=== PATIENT | female | born 1980 | race Asian ===

== ENCOUNTER 2022-02-20 22:27 | Emergency (ER) | payer OTHER ==
[~2022-02-20] VITALS: Ht 154.9 cm; Wt 59.0 kg
[2022-02-20 22:43] VITALS: BP_SYST 131
--- NOTE | 2022-02-20 22:48 | NUR ---
TPT HERE C/O VAGINA BLEEDING X1 WK AND PAASING CLOTS TONIGHT. PT STATED THAT SHE IS THRU IVF AND MICHELET 10/05/2022. PT STATED SHE IS HAVING MILD ABD CRAMPING. PMH;DENIES PT AAOX4, NOT IN ANY DISTRESS AT THIS TIME. PENDING MD CHILDS
[2022-02-20 23:40] LABS: BILIRUBIN,URINE NEGATIVE (NEGATIVE); BLOOD, URINE 3+ (NEGATIVE); CLARITY/URINE CLEAR (CLEAR); COLOR,URINE YELLOW (YELLOW); GLUCOSE,URINE NEGATIVE (NEGATIVE); KETONES,URINE NEGATIVE (NEGATIVE); LEUKOCYTE ESTERASE ,URINE 1+ (NEGATIVE); NITRITE, URINE NEGATIVE (NEGATIVE); PROTEIN URINE NEGATIVE (NEGATIVE); UROBILINOGEN,URINE 0.2 (0.2-1.0)
[2022-02-20 23:52] LABS: BACTERIA,URINE FEW /HPF (None Seen)
[2022-02-20 23:53] LABS: MUCUS,URINE 1+ /LPF (None Seen)
[2022-02-20 23:58] LABS: BASOPHILS # (AUTO) 0.1 K/uL (0.0-0.2); BASOPHILS % (AUTO) 0.6 % (0.0-2.0); EOSINOPHILS # (AUTO) 0.3 K/uL (0.0-0.4); EOSINOPHILS % (AUTO) 3.1 % (0.0-4.0); HEMATOCRIT 39.3 % (36-48); LYMPHOCYTES # (AUTO) 2.4 K/uL (1.0-5.5); LYMPHOCYTES % (AUTO) 22.7 % (20.5-51.5); MEAN CORPUSCULAR VOLUME 90 fL (79.0-98.0); MONOCYTES # (AUTO) 0.7 K/uL (0.0-1.0); MONOCYTES % (AUTO) 6.3 % (1.7-9.3); NEUTROPHILS # (AUTO) 7.2 K/uL (1.8-7.7); NEUTROPHILS % (AUTO) 67.3 % (40.0-70.0); PLATELET COUNT (AUTO) 414 K/uL (130-430); RED BLOOD CELL COUNT(AUTO) 4.36 MIL/uL (4.2-6.2); RED CELL DISTRIBUTION WIDTH 13.3 % (9.0-15.0); WHITE BLOOD COUNT (AUTO) 10.7 K/uL (4.8-10.8)
[2022-02-21 00:14] LABS: CALCIUM 9.7 mg/dL (8.4-11.0); CREATININE 0.64 mg/dL (0.55-1.30); POTASSIUM 3.7 mmol/L (3.5-5.1)
[2022-02-21 00:43] LABS: ALBUMIN 3.7 g/dL (3.4-4.8); TOTAL BILIRUBIN 0.4 mg/dL (0.0-1.0)
[2022-02-21] MEDS ORDERED: NITR-85 PO (01:14)
[2022-02-21 01:18] VITALS: BP_SYST 131
--- NOTE | 2022-02-21 01:18 | NUR ---
Patient given written and verbal discharge instructions and verbalizes understanding. ER MD discussed with patient the results and treatment provided. Patient in stable condition. ID arm band removed. Rx of given. Patient educated on pain management and to follow up with PMD. Pain Scale 0/10. Opportunity for questions provided and answered.
== END 2022-02-21 01:18 | disposition home or self-care (01) ==
LOC: SED 22:27
DX: O20.0 Threatened abortion (principal); O23.41 Unspecified infection of urinary tract in pregnancy, first trimester; N39.0 Urinary tract infection, site not specified; Z88.0 Allergy status to penicillin; Z3A.01 Less than 8 weeks gestation of pregnancy
CPT/HCPCS: 36415; 76805-TC; 80053; 81000; 84702; 85025; 86901; 99283

== ENCOUNTER 2022-10-12 01:44 | Inpatient (IN) | payer OTHER ==
[~2022-10-12] VITALS: Ht 157.5 cm; Wt 74.8 kg
[~2022-10-12 01:44] MED LIST: NITR-85 PO
[2022-10-12 01:50] VITALS: BP_SYST 147
[2022-10-12 02:28] LABS: BILIRUBIN,URINE NEGATIVE (NEGATIVE); BLOOD, URINE 3+ (NEGATIVE); CLARITY/URINE CLOUDY (CLEAR); GLUCOSE,URINE NEGATIVE (NEGATIVE); KETONES,URINE NEGATIVE (NEGATIVE); LEUKOCYTE ESTERASE ,URINE 2+ (NEGATIVE); NITRITE, URINE NEGATIVE (NEGATIVE); PROTEIN URINE 1+ (NEGATIVE)
[2022-10-12 02:29] LABS: COLOR,URINE YELLOW (YELLOW)
[2022-10-12] MEDS ORDERED: NACL 0.9% 1,000 ML IV ONE ×2 (02:30→03:15)
[2022-10-12 02:48] LABS: BASOPHILS % (AUTO) 0.2 % (0.0-2.0); EOSINOPHILS # (AUTO) 0.1 K/uL (0.0-0.4); EOSINOPHILS % (AUTO) 0.4 % (0.0-4.0); HEMATOCRIT 22.9 % (36-48); HEMOGLOBIN 7.4 g/dL (12.0-16.0); LYMPHOCYTES # (AUTO) 1.3 K/uL (1.0-5.5); LYMPHOCYTES % (AUTO) 8.1 % (20.5-51.5); MEAN CORPUSCULAR HEMOGLOBIN 31 pg (27-31); MEAN CORPUSCULAR HGB CONC 33 % (32-36); MEAN CORPUSCULAR VOLUME 94 fL (79.0-98.0); MONOCYTES # (AUTO) 1.5 K/uL (0.0-1.0); NEUTROPHILS # (AUTO) 13.7 K/uL (1.8-7.7); NEUTROPHILS % (AUTO) 82.3 % (40.0-70.0); PLATELET COUNT (AUTO) 325 K/uL (130-430); RED BLOOD CELL COUNT(AUTO) 2.44 MIL/uL (4.2-6.2); RED CELL DISTRIBUTION WIDTH 15.9 % (9.0-15.0); WHITE BLOOD COUNT (AUTO) 16.7 K/uL (4.8-10.8)
[2022-10-12 02:55] LABS: ANION GAP 9 (5-15); CALCIUM 7.5 mg/dL (8.4-11.0); CHLORIDE 106 mmol/L (98-107); CREATININE 0.85 mg/dL (0.55-1.30); GFR AFRICAN AMERICAN 94 mL/min (>90); GLUCOSE 88 mg/dL (70-99); UREA NITROGEN, BLOOD 13 mg/dL (8-21)
[2022-10-12 03:00] LABS: BACTERIA,URINE FEW /HPF (None Seen); RBC,URINE >100 /HPF (0-3); WBC,URINE 20-50 /HPF (0-3)
[2022-10-12 03:01] LABS: ALANINE AMINOTRANSFERASE 12 U/L (12-78); ASPARTATE AMINOTRANSFERASE 16 U/L (10-37); TOTAL BILIRUBIN 0.4 mg/dL (0.0-1.0)
[2022-10-12] MEDS ORDERED: OSELTAMIVIR PHOSPHATE 75 MG CAPSULE PO ONE (03:15)
[2022-10-12] MEDS ORDERED: cefTRIAXone 1 GM in D5W 50 ML IV ONE (03:15)
[2022-10-12] MEDS ORDERED: cefTRIAXone 1 GM VIAL ONE (03:29)
[2022-10-12] MEDS ORDERED: iohexoL 350 mgI/mL, 100 ML INFUS..BTL IV ONE (03:34)
[2022-10-12] MEDS ORDERED: cefTRIAXone 1 GM IVPB PREMIX 50 ML IV SCH ×2 (06:00→21:00)
[2022-10-12] MEDS ORDERED: AZITHROMYCIN 500 MG in NS 250 ML IV SCH ×4 (06:00)
[2022-10-12 06:44] VITALS: BP_SYST 130
[2022-10-12 08:00] VITALS: BP_SYST 118
[2022-10-12] MEDS: AZITHROMYCIN 500 MG in NS 250 ML IV SCH (09:17)
[2022-10-12] MEDS ORDERED: FUROSEMIDE 20 MG/2 ML VIAL IVP SCH (10:00)
[2022-10-12] MEDS ORDERED: FUROSEMIDE 20 MG TABLET PO ONE (10:30)
[2022-10-12] MEDS ORDERED: ALBUTEROL SULFATE 0.083% 2.5 MG/3 ML VIAL.NEB INH PRN (10:45)
[2022-10-12 10:58] LABS: TOTAL IRON BIND. CAPACITY 213 ug/dL (250-450)
[2022-10-12 11:23] VITALS: BP_SYST 127
[2022-10-12 15:24] VITALS: BP_SYST 140
[2022-10-12 20:00] VITALS: BP_SYST 141
[2022-10-12] MEDS ORDERED: FUROSEMIDE 20 MG TABLET PO SCH (21:00)
[2022-10-12] MEDS ORDERED: CARVEDILOL 3.125 MG TABLET (COREG) PO SCH (21:00)
[2022-10-12] MEDS: IBUPROFEN 600 MG TABLET PO PRN (22:30)
[2022-10-13] VITALS: BP_SYST 144
[2022-10-13 01:11] VITALS: BP_SYST 128
[2022-10-13] MEDS: IBUPROFEN 600 MG TABLET PO PRN (04:43)
[2022-10-13 05:21] LABS: BASOPHILS % (AUTO) 0.2 % (0.0-2.0); EOSINOPHILS # (AUTO) 0.1 K/uL (0.0-0.4); EOSINOPHILS % (AUTO) 0.9 % (0.0-4.0); HEMATOCRIT 22.8 % (36-48); HEMOGLOBIN 7.6 g/dL (12.0-16.0); LYMPHOCYTES # (AUTO) 1.3 K/uL (1.0-5.5); LYMPHOCYTES % (AUTO) 8.7 % (20.5-51.5); MEAN CORPUSCULAR HEMOGLOBIN 31 pg (27-31); MEAN CORPUSCULAR HGB CONC 33 % (32-36); MEAN CORPUSCULAR VOLUME 93 fL (79.0-98.0); MONOCYTES # (AUTO) 1.1 K/uL (0.0-1.0); MONOCYTES % (AUTO) 7.7 % (1.7-9.3); NEUTROPHILS # (AUTO) 12.2 K/uL (1.8-7.7); NEUTROPHILS % (AUTO) 82.5 % (40.0-70.0); PLATELET COUNT (AUTO) 347 K/uL (130-430); RED BLOOD CELL COUNT(AUTO) 2.45 MIL/uL (4.2-6.2); RED CELL DISTRIBUTION WIDTH 16.1 % (9.0-15.0); WHITE BLOOD COUNT (AUTO) 14.8 K/uL (4.8-10.8)
[2022-10-13 05:54] LABS: CALCIUM 7.7 mg/dL (8.4-11.0); CREATININE 0.7 mg/dL (0.55-1.30); TOTAL BILIRUBIN 0.4 mg/dL (0.0-1.0)
[2022-10-13] MEDS ORDERED: LABE200T9 PO (07:21)
[2022-10-13] MEDS ORDERED: LEVO25TA7 PO (07:21)
[2022-10-13] MEDS ORDERED: HYDR-3927 PO (07:21)
[2022-10-13 08:00] VITALS: BP_SYST 139
[2022-10-13] MEDS: AZITHROMYCIN 500 MG in NS 250 ML IV SCH (08:35)
[2022-10-13] MEDS ORDERED: FUROSEMIDE 40 MG/4 ML VIAL IVP SCH (09:00)
[2022-10-13] MEDS ORDERED: LOSARTAN POTASSIUM 50 MG TABLET (COZAAR) PO SCH (09:00)
[2022-10-13] MEDS ORDERED: CARVEDILOL 12.5 MG TABLET (COREG) PO SCH (09:00)
[2022-10-13] MEDS ORDERED: SOD FERRIC GLUC COMPLEX/SUC 125 MG in NS 100 ML IV SCH ×2 (10:00→11:30)
[2022-10-13 10:06] LABS: FOLATE (FOLIC ACID) >20.0 ng/mL (>3.0)
[2022-10-13 11:30] VITALS: BP_SYST 124
[2022-10-13] MEDS ORDERED: MULTIVITS,CA,MINERALS/IRON/FA 1 TABLET PO ONE (11:45)
[2022-10-13] MEDS ORDERED: OSELTAMIVIR PHOSPHATE 75 MG CAPSULE PO ONE (11:45)
[2022-10-13] MEDS ORDERED: IBUPROFEN 600 MG TABLET PO PRN (12:15)
[2022-10-13] MEDS ORDERED: POTASSIUM CHLORIDE 20 MEQ TAB.PRT.SR PO ONE (13:00)
[2022-10-13 15:35] VITALS: BP_SYST 129
[2022-10-13 17:28] VITALS: BP_SYST 127
[2022-10-13] MEDS ORDERED: OSELTAMIVIR PHOSPHATE 75 MG CAPSULE PO SCH (21:00)
[2022-10-14] MEDS ORDERED: MULTIVITS,CA,MINERALS/IRON/FA 1 TABLET PO SCH (09:00)
[2022-10-14] MEDS ORDERED: POTASSIUM CHLORIDE 20 MEQ TAB.PRT.SR PO SCH (09:00)
== END 2022-10-13 21:00 | disposition short-term general hospital (02) | DRG 776 ==
LOC: SED 01:44 → STU 04:20 → SMU 10-13 15:58
PROVIDERS: ADMIT Internal Medicine; ATTEND Internal Medicine
DX: O99.53 Diseases of the respiratory system complicating the puerperium (principal); I50.41 Acute combined systolic (congestive) and diastolic (congestive) heart failure; J18.0 Bronchopneumonia, unspecified organism; J96.00 Acute respiratory failure, unspecified whether with hypoxia or hypercapnia; N39.0 Urinary tract infection, site not specified; O99.43 Diseases of the circulatory system complicating the puerperium; O86.20 Urinary tract infection following delivery, unspecified; O90.81 Anemia of the puerperium; J10.1 Influenza due to other identified influenza virus with other respiratory manifestations; O90.89 Other complications of the puerperium, not elsewhere classified; D50.9 Iron deficiency anemia, unspecified; I27.20 Pulmonary hypertension, unspecified; J20.9 Acute bronchitis, unspecified; Z20.822 Contact with and (suspected) exposure to COVID-19; E78.5 Hyperlipidemia, unspecified; D64.9 Anemia, unspecified; Z88.0 Allergy status to penicillin; Z79.899 Other long term (current) drug therapy
CPT/HCPCS: 36415; 71045; 71275; 76376; 80053; 81000; 82607; 82746; 83540; 83550; 83605; 83880; 84484; 85025; 85379; 86886; 86900; 86901; 87040; 87081; 87086; 93005; 93306; 96365; 99291; G0378; G9035; J0456; J0696; J1940; J2916; J7030; J7050; Q9967